=== PATIENT | female | born 1945 | race Two or more races ===

== ENCOUNTER 2021-11-04 16:14 | Emergency (ER) | payer OTHER ==
[~2021-11-04] VITALS: Ht 152.4 cm; Wt 45.8 kg
[2021-11-04] MEDS ORDERED: COZAAR100 MG PO (16:25)
[2021-11-04] MEDS ORDERED: TOPROL XL25 M1 PO (16:26)
[2021-11-04] MEDS ORDERED: PLAQUENIL (16:26)
== END 2021-11-04 21:21 | disposition home or self-care (01) ==
LOC: ER 16:14
DX: E86.0 Dehydration (principal); R42 Dizziness and giddiness; I10 Essential (primary) hypertension